=== PATIENT | male | born 2000 | race Two or more races ===

== ENCOUNTER 2024-02-01 13:52 | Emergency (ER) | payer OTHER ==
[~2024-02-01] VITALS: Ht 182.9 cm; Wt 95.3 kg
[2024-02-01 17:03] LABS: HEMOGLOBIN 14.2 g/dL (13-16.00); MEAN CELL VOLUME 83.1 fL (80.0-100.00); MEAN CORPUSCULAR HEMOGLOBIN 28.1 pg (27.00-32.0); MEAN CORPUSCULAR HGB CONC 33.7 g/dl (32.0-36.0); PLATELET COUNT 342 K/uL (150-450); RED BLOOD COUNT 5.06 M/uL (4.00-6.00); RED CELL DISTRIBUTION WIDTH 12.7 % (11.5-14.5)
[2024-02-01] MEDS ORDERED: DEXAMETHASONE SODIUM PHOSPHATE 4 MG/ML VIAL IM ONE (20:15)
[2024-02-01] MEDS ORDERED: KETOROLAC TROMETHAMINE 60 MG VIAL IM ONE (20:15)
== END 2024-02-01 20:42 | disposition home or self-care (01) ==
LOC: ER 13:54
PROVIDERS: Preventive Medicine Public Health & General Preventive Medicine
DX: B34.9 Viral infection, unspecified (principal); Z20.822 Contact with and (suspected) exposure to COVID-19